=== PATIENT | female | born 1955 | race Caucasian/White ===

== ENCOUNTER → 2020-08-20 13:40 | Outpatient (BNVA) | payer OTHER, SELFPAY | PROVIDERS: PCP Internal Medicine; Referring Provider Internal Medicine; Visit Provider Orthopaedic Surgery | DX: M17.0 Bilateral primary osteoarthritis of knee (principal) | CPT/HCPCS: 20610; 99202; J1100 ==

== ENCOUNTER → 2021-07-01 14:38 | Outpatient (BNVA) | payer MEDICARE, MEDICAID, OTHER, SELFPAY | PROVIDERS: PCP Internal Medicine; Visit Provider Surgery Vascular Surgery | DX: I83.12 Varicose veins of left lower extremity with inflammation (principal); M17.0 Bilateral primary osteoarthritis of knee | CPT/HCPCS: 99202 ==

== ENCOUNTER 2021-07-20 08:13 | Outpatient (REF) | payer MEDICARE, SELFPAY ==
--- NOTE | ~2021-07-20 | US_ITS ---
EXAMINATION: BILATERAL LOWER EXTREMITY VENOUS ULTRASOUND (Reflux Exam) CLINICAL INDICATION: This is a 66-year-old female with venous insufficiency and varicose veins. COMPARISON: None. TECHNIQUE: Color flow triplex imaging and compression Doppler was performed to evaluate both the deep and the superficial systems bilaterally. To evaluate the superficial system, the examination was performed in the upright position. Color-flow Doppler ultrasound and compression ultrasound were utilized. In addition, maneuvers were utilized to demonstrate reflux. FINDINGS: 1. DEEP VENOUS ULTRASOUND OF THE RIGHT LOWER EXTREMITY: Common Femoral Vein: Compressible, normal respiratory variation and augmented flow. Femoral vein: Compressible, normal color flow and augmentation. Popliteal Vein: Compressible, normal augmentation. Deep Reflux: There is no evidence of reflux in the deep system in either the common femoral vein or the popliteal vein. . There is no evidence of a Page's cyst. 2. SUPERFICIAL ULTRASOUND WITH DOPPLER OF RIGHT LOWER EXTREMITY GREAT SAPHENOUS VEIN: Saphenofemoral junction: 0.6 cm. The reflux time is 3128 ms. Mid thigh: 0.3 cm. The reflux time is 3220 ms. Above knee: 0.4 cm. The reflux time is 3204 ms. Below knee: 0.3 cm. The reflux time is 3176 ms. Mid calf: 0.2 cm. There is no reflux. Ankle: 0.3 cm. There is no reflux to GSV REFLUX: There is reflux at the saphenofemoral junction and extending down below the knee. DUPLICATED GREAT SAPHENOUS VEIN: None SMALL SAPHENOUS VEIN: Upper: 0.4 cm Lower: 0.2 cm SSV REFLUX: No evidence of reflux. VEIN OF GIACOMINI: None Imaged. PERFORATORS: There is a 0.4 cm proximal calf back shoe cutter with reflux of 3244 ms. VARICOSITIES: There are 0.9 cm varicose veins in the upper thigh with the reflux time of 3280 ms. There is 0.3 cm varicose veins in the mid thigh with reflux time of 2848 ms. There is a 0.4 cm distal thigh varicose vein with the reflux time of 2976 ms. 3. DEEP VENOUS ULTRASOUND OF THE LEFT LOWER EXTREMITY: Common Femoral Vein: Compressible, normal respiratory variation and augmented flow. Femoral vein: Compressible, normal color flow and augmentation. Popliteal Vein: Compressible, normal augmentation. Deep Reflux: There is no evidence of reflux in the deep system in either the common femoral vein or the popliteal vein. There is a fluid collection seen in the left popliteal fossa. This may represent a popliteal cyst. 4. SUPERFICIAL ULTRASOUND WITH DOPPLER OF LEFT LOWER EXTREMITY GREAT SAPHENOUS VEIN: Saphenofemoral junction: 0.5 cm. There is no reflux at the junction. Mid thigh: 0.2 cm. The reflux time is 3144 ms. Above knee: 0.2 cm. The reflux time is 1052 ms. Below knee: 0.2 cm. The reflux time is 3040 ms. Mid calf: 0.2 cm. There is no reflux. Ankle: 0.2 cm. There is no reflux. GSV REFLUX: There is no reflux at the saphenofemoral junction. However, there is reflux in the mid thigh extending down below the knee. DUPLICATED GREAT SAPHENOUS VEIN: None SMALL SAPHENOUS VEIN: Upper: 0.3 cm Lower: 0.2 cm SSV REFLUX: No evidence of reflux. VEIN OF GIACOMINI: None Imaged. PERFORATORS: There is a 0.2 cm mid thigh back shoe cutter with greater than 3 seconds of reflux. VARICOSITIES: There is a 0.3 cm proximal thigh varicose vein with greater than 3 seconds of reflux. There is a 0.5 cm mid thigh varicose vein with greater than 3 seconds of reflux. There is a 0.4 cm proximal calf varicose veins with 2892 ms of reflux. There is a 0.3 cm anterior mid calf varicose vein with greater than 3 seconds of reflux. US/US venous duplex LE BI IMPRESSION: 1. There is a patent right great saphenous vein with reflux at the saphenofemoral junction of greater than 3 seconds. 2. There is a patent right small saphenous vein without evidence of reflux. 3. There are varicose veins in the right thigh with greater than 3 seconds of reflux. 4. There is a patent left great saphenous vein without reflux seen at the junction. However, reflux is seen from the proximal thigh down to below the knee. 5. There is a patent left small saphenous vein without evidence of reflux. 6. There are varicose veins in the left thigh and calf with reflux. 7. There is a left popliteal fossa cyst.
== END 2021-07-20 08:14 | disposition home or self-care (01) ==
LOC: HO.US 08:13
PROVIDERS: PCP Internal Medicine; Visit Provider Surgery Vascular Surgery
DX: I83.12 Varicose veins of left lower extremity with inflammation (principal)
CPT/HCPCS: 93970

== ENCOUNTER → 2021-07-27 10:10 | Outpatient (BNVA) | payer MEDICARE, SELFPAY | PROVIDERS: PCP Internal Medicine; Visit Provider Surgery Vascular Surgery | DX: I83.11 Varicose veins of right lower extremity with inflammation (principal) | CPT/HCPCS: 99212 ==

== ENCOUNTER → 2021-10-22 08:57 | Outpatient (BNVA) | payer MEDICARE, SELFPAY | PROVIDERS: PCP Internal Medicine; Visit Provider Surgery Vascular Surgery | DX: I83.11 Varicose veins of right lower extremity with inflammation (principal) | CPT/HCPCS: 36475 ==

== ENCOUNTER 2021-10-25 14:44 | Outpatient (REF) | payer MEDICARE, SELFPAY ==
--- NOTE | ~2021-10-25 | US_ITS ---
EXAMINATION: US VENOUS ULTRASOUND WITH DOPPLER LOWER EXTREMITY, RIGHT CLINICAL INFORMATION: This is a 66-year-old female with pain in the right leg. The patient is status post radiofrequency ablation in the right great saphenous vein on . COMPARISON: None TECHNIQUE: Ultrasound of the deep veins is performed from the hip to the calf with compression sonography and color and pulse Doppler assessment. Spectral analysis with color-flow imaging is performed. FINDINGS: There is normal venous compression and respiratory variation and augmented flow. The visualized common femoral vein, superficial femoral vein, profunda femoral vein, popliteal vein, and the trifurcation region shows no evidence of deep venous thrombosis. There is no significant popliteal fossa cyst. The right great saphenous vein appears close to 0.7 cm from the saphenofemoral junction. There is no extension of thrombus into the deep venous system. US/US venous duplex LE RT IMPRESSION: 1. No DVT demonstrated in the right lower extremity. 2. The right great saphenous vein appears closed beginning 2.7 cm from the saphenofemoral junction. There is no extension into the deep venous system.
== END 2021-10-25 14:45 | disposition home or self-care (01) ==
LOC: HO.US 14:44
PROVIDERS: Visit Provider Surgery Vascular Surgery
DX: M79.604 Pain in right leg (principal)
CPT/HCPCS: 93971

== ENCOUNTER → 2021-11-04 11:08 | Outpatient (BNVA) | payer MEDICARE, SELFPAY | PROVIDERS: PCP Internal Medicine; Visit Provider Surgery Vascular Surgery | DX: I83.12 Varicose veins of left lower extremity with inflammation (principal); Z98.890 Other specified postprocedural states | CPT/HCPCS: 99212 ==

== ENCOUNTER → 2021-12-17 09:32 | Outpatient (BNVA) | payer MEDICARE, SELFPAY | PROVIDERS: PCP Internal Medicine; Visit Provider Surgery Vascular Surgery | DX: I83.12 Varicose veins of left lower extremity with inflammation (principal) | CPT/HCPCS: 36482 ==

== ENCOUNTER 2021-12-20 15:12 | Outpatient (REF) | payer MEDICARE, SELFPAY ==
--- NOTE | ~2021-12-20 | US_ITS ---
EXAMINATION: US VENOUS ULTRASOUND WITH DOPPLER LOWER EXTREMITY, LEFT CLINICAL INFORMATION: Post vena seal 12/17/2021 COMPARISON: Previous exam October 2021 TECHNIQUE: Ultrasound of the deep veins is performed from the hip to the calf with compression sonography and color and pulse Doppler assessment. Spectral analysis with color-flow imaging is performed. FINDINGS: There is normal venous compression and respiratory variation and augmented flow. The visualized common femoral vein, superficial femoral vein, profunda femoral vein, popliteal vein, and the trifurcation region shows no evidence of deep venous thrombosis. The left greater saphenous vein is closed. There is echogenic material in the left greater saphenous vein 1.5 cm from the saphenofemoral junction post vena seal procedure. There is no significant popliteal fossa cyst. US/US venous duplex LE LT IMPRESSION: No DVT demonstrated in the left lower extremity.
== END 2021-12-20 15:13 | disposition home or self-care (01) ==
LOC: HO.US 15:12
PROVIDERS: Visit Provider Surgery Vascular Surgery
DX: M79.605 Pain in left leg (principal)
CPT/HCPCS: 93971

== ENCOUNTER → 2021-12-30 10:08 | Outpatient (BNVA) | payer MEDICARE, SELFPAY | PROVIDERS: PCP Internal Medicine; Visit Provider Surgery Vascular Surgery | DX: I83.12 Varicose veins of left lower extremity with inflammation (principal) | CPT/HCPCS: 99212 ==

== ENCOUNTER 2023-10-06 10:31 | Outpatient (REF) | payer OTHER, SELFPAY ==
[2023-10-06 11:49] LABS: MANUAL DIFF FLAG NO
[2023-10-06 11:58] LABS: Basophils Percent Auto 0.3 % (0-2); Eosinophils Percent Auto 0.3 % (0-4); Hematocrit 37.8 % (37.0-47.0); Hemoglobin 12.3 g/dl (12.0-16.0); Imm Gran Abs Auto 0.01 X10*3/uL (0.00-0.03); Imm Gran Pct Auto 0.3 % (0.0-0.4); Lymphocytes Absolute Auto 1.4 X10*3/uL (1.2-4.9); Lymphocytes Percent Auto 36.7 % (20-40); Mean Corpuscular HGB Conc 32.5 g/dl (31.0-35.0); Mean Corpuscular Hemoglobin 27.3 pg (27.0-33.0); Mean Corpuscular Volume 83.8 fL (80.0-98.0); Mean Platelet Volume 10.8 fL (9.4-12.3); Monocytes Absolute Auto 0.3 X10*3/uL (0.1-1.2); Monocytes Percent Auto 8.3 % (2-11); Neutrophils Absolute Auto 2.1 x10*3/uL (2.0-8.3); Neutrophils Percent Auto 54.1 % (45-73); Platelet Count 379 X10*3/uL (160-400); Red Blood Count 4.51 X10*6/uL (4.20-5.50); Red Cell Distribution Width 13.5 % (11.0-16.0); White Blood Count 3.9 X10*3/uL (4.8-10.8)
[2023-10-06 14:49] LABS: Anion Gap 12 (12-20); Blood Urea Nitrogen 12 mg/dL (9-16); Calcium 9.3 mg/dL (8.4-10.2); Carbon Dioxide 27 mmol/L (22-29); Chloride 104 mmol/L (96-108); Estimated Glomerular Filt Rate > 60; Glucose Random 105 mg/dL (60-115); Potassium 3.4 mmol/L (3.3-5.1); Sodium 140 mmol/L (135-145)
[2023-10-07 04:21] LABS: HIV AB/AG Nonreactive (Nonreactive); HIV Num 1 0.28 S/CO (0.00-0.99); ~Hepatitis C Antibody Nonreactive (Nonreactive)
[2023-10-09 21:24] LABS: TS Negative Control Passed; TS Panel A 0; TS Panel B 0; TS Positive Control Passed; TSpotTB Negative (Negative)
== END 2023-10-06 10:32 | disposition home or self-care (01) ==
LOC: HO.HHCL 10:31
PROVIDERS: Visit Provider Internal Medicine
DX: Z11.4 Encounter for screening for human immunodeficiency virus [HIV] (principal); Z11.1 Encounter for screening for respiratory tuberculosis; R63.4 Abnormal weight loss
CPT/HCPCS: 36415; 80048; 85025; 86481; 86803; 87389

== ENCOUNTER 2023-11-08 10:50 | Outpatient (REF) | payer MEDICARE, SELFPAY ==
--- NOTE | ~2023-11-08 | MM_ITS ---
EXAMINATION: MM SCREENING DIGITAL BREAST TOMOSYNTHESIS, BILATERAL CLINICAL INFORMATION: Screening. Asymptomatic. COMPARISON: Mammography: This study is compared with prior exams dating back to 2013. There are no interval examinations. TECHNIQUE: Digital breast tomosynthesis is performed in both the craniocaudal and mediolateral oblique views along with computer-aided detection (CAD). Synthesized 2D images are generated from the tomosynthesis. FINDINGS: There are scattered areas of fibroglandular density (ACR BI-RADS breast composition Category b). There are no significant masses, abnormal calcifications, or other abnormalities. MM/MM tomosynthesis screening BI IMPRESSION: No mammographic evidence of malignancy. ASSESSMENT: BI-RADS BI-RADS 1 - Negative RECOMMENDATION: Routine annual mammography screening. 1 year F/U This examination should not preclude the clinical evaluation of a suspicious palpable abnormality. This patient's information was entered into a reminder system with a target due date for their next mammogram.
== END 2023-11-08 10:51 | disposition home or self-care (01) ==
LOC: HO.MAMMO 10:50
PROVIDERS: PCP Internal Medicine; Visit Provider Internal Medicine
DX: Z12.31 Encounter for screening mammogram for malignant neoplasm of breast (principal)
CPT/HCPCS: 77063; 77067

== ENCOUNTER → 2023-11-08 11:30 | Outpatient (BNV) | payer MEDICARE, SELFPAY | PROVIDERS: PCP Internal Medicine; Visit Provider Radiology Diagnostic Radiology | DX: Z12.31 Encounter for screening mammogram for malignant neoplasm of breast (principal) | CPT/HCPCS: 77063; 77067 ==

== ENCOUNTER 2025-03-07 10:45 | Outpatient (REF) | payer OTHER, SELFPAY ==
--- NOTE | ~2025-03-07 | MM_ITS ---
EXAMINATION: MM SCREENING DIGITAL BREAST TOMOSYNTHESIS, BILATERAL CLINICAL INFORMATION: Screening. Asymptomatic. COMPARISON: Mammography: Comparison is made with available priors TECHNIQUE: Digital breast mammography with tomosynthesis is performed in both the craniocaudal and mediolateral oblique views along with computer-aided detection (CAD). FINDINGS: The breasts are heterogeneously dense, which may obscure small masses (ACR BI-RADS breast composition Category c). There are no significant masses, abnormal calcifications, or other abnormalities. MM/MM tomosynthesis screening BI IMPRESSION: No mammographic evidence of malignancy. ASSESSMENT: BI-RADS BI-RADS 1 - Negative RECOMMENDATION: Routine annual mammography screening. 1 year F/U This examination should not preclude the clinical evaluation of a suspicious palpable abnormality. This patient's information was entered into a reminder system with a target due date for their next mammogram. Electronically signed by: Pippa Morales DO 03/13/2025 01:34 PM EDT
--- OUTSIDE RECORDS SUMMARY | 2025-03-07 11:12 | XMS_ITS | Encounter Summary ---
Author Organization [employer] Address [address] [place] [address] Care Team Providers Care Occup Ther Name Role Phone Joleen Ledezma MD Primary Care Provide r Encounter Details Date Type Department Care Team (Latest Contact Info) Description 04/16/2019 Abstract [facility] Dental, Provider, DDS Social History Tobacco Use Types Packs/Day Years Used Date Smoking Tobacco: Never Assessed Comments Unknown Sex and Gender Information Value Date Recorded Sex Assigned at Female 07/18/2022 10:28 AM EDT Legal Sex Female 10:28 AM EDT Gender Identity Female 07/18/2022 10:28 AM EDT Sexual Orientation Choose not to disclose 2021 10:28 AM EDT documented as of this encounter Plan of Treatment Upcoming Encounters Date Type Department Care Team (Late st Contact Info) Description 04/03/2025 11:00 AM EDT Office Visit [facility] [address] [place] [address] Joleen Ledezma MD [address] [place] [address] documented as of this encounter Visit Diagnoses Not on filedocumented in this encounter Care Teams Occup Ther Relationship Specialty Start Date End Date Joleen Ledezma MD [address] [place] [address] PCP - General Family Medicine 11/22/18 documented as of this encounter
== END 2025-03-07 10:46 | disposition home or self-care (01) ==
LOC: HO.MAMMO 10:45
PROVIDERS: PCP Internal Medicine; Visit Provider Internal Medicine
DX: Z12.31 Encounter for screening mammogram for malignant neoplasm of breast (principal)
CPT/HCPCS: 77063; 77067

== ENCOUNTER → 2025-03-07 11:15 | Outpatient (BNV) | payer OTHER, SELFPAY | PROVIDERS: PCP Internal Medicine; Visit Provider Internal Medicine | DX: Z12.31 Encounter for screening mammogram for malignant neoplasm of breast (principal) | CPT/HCPCS: 77063; 77067 ==

== ENCOUNTER 2025-04-07 08:59 | Outpatient (REF) | payer OTHER, SELFPAY ==
--- OUTSIDE RECORDS SUMMARY | 2025-04-07 09:14 | XMS_ITS | Encounter Summary ---
Author Organization [employer] Address [address] [place] [address] Care Team Providers Care Paid Search Marketing Analyst Name Role Phone Joleen Ledezma MD Primary Care Provide r Encounter Details Date Type Department Care Team (Latest Contact Info) Description 04/16/2019 Abstract [facility] Dental, Provider, DDS Social History [...] as of this encounter Plan of Treatment Not on file documented as of this encounter Visit Diagnoses Not on filedocumented in this encounter Care Teams Paid Search Marketing Analyst Relationship Specialty Start Date End Date Joleen Ledezma MD [address] [place] [id number] PCP - General Family Medicine 11/22/18 documented as of this encounter
--- OUTSIDE RECORDS SUMMARY | 2025-04-07 09:14 | XMS_ITS | Clinical Summary ---
Author Organization [facility] Address [address] [place] [address] Phone Care Team Providers Care Hospital Insurance Clerk Name Role Phone Jose Mcdonnell MD Primary Care Provider [phone] Allergies No known active allergies Medications methocarbamoL (ROBAXIN) 500 mg tablet Take 1 tablet (500 mg total) by mouth 2 (two) times a day for 10 days. 20 tablet 12/10/2024 Active oxyCODONE (ROXICODONE) 5 mg immediate release tablet Take 1 tablet (5 mg total) by mouth every 6 (six) hours if needed for severe pain. Max Daily Amount: 20 mg 8 tablet 02/14/2025 Active Active Problems No known active problems Encounters Date Type Department Care Team Description 02/14/2025 7:40 AM EDT - 02/14/2025 9:03 AM EDT Emergency [facility] Emergency [address] [place] [address] Dental abscess (Primary Dx) Discharge Disposition: Home or Self Care from Last 3 Months Social History Tobacco Use Types Packs/Day Years Used Date Smoking Tobacco: Never Assessed Comments Unknown Sex and Gender Information Value Date Recorded Sex Assigned at Female 12/10/2024 8:15 AM EDT Legal Sex Female 9:03 AM EST Gender Identity Female 12/10/2024 8:15 AM EDT Sexual Orientation Straight 12/10/2024 8: 15 AM EDT Obstetrics History Last Filed Vital Signs Vital Sign Reading Time Taken Comments Blood Pressure 169/84 02/14/2025 7:39 AM EDT Pulse 89 02/14/2025 7:39 AM EDT Temperature 36.7 C (98.1 F) 02/14/2025 7:39 AM EDT Respiratory Rate 16 02/14/2025 7:39 AM EDT Oxygen Saturation 98% 02/14/2025 7:39 AM EDT Inhaled Oxygen Concentration - - Weight 65.8 kg (145 lb) 02/14/2025 7:39 AM EDT Height 160 cm (5' 3 ) 02/14/2025 7:39 AM EDT Body Mass Index 25.69 02/14/2025 7:39 AM EDT Plan of Treatment Health Maintenance Due Date Last Done Comments Breast Cancer Screening 1955 Zoster Vaccines (1 of 2) 2006 DTaP,Tdap,and Td Vaccines (2 - Td or Tdap) 06/18/2023 06/18/2013 Colorectal Cancer Screening: Colonoscopy 10/17/2023 Falls Risk Assessment 10/17/2023 Medicare Annual Wellness Visit 10/17/2023 Osteoporosis Screening (Bone Density Screening) 10/17/2023 Social Influencers of Health Screening 10/17/2023 COVID-19 Vaccine ( season) 2024 09/16/2021, 12/16/2020, 11/25/2020 Depression Screening 09/18/2024 Hypertension/CHF/CAD Annual BMP Blood Test 12/10/2024 Influenza Vaccine (#1) 2025 , 07/30/2020, 11/22/2018, Additional history exists Cholesterol Screening (Lipid Panel) 04/06/2026 04/06/2021 RSV Immunization Adult Patients (1 - 1-dose 75+ series) 2031 Hepatitis C Screening Completed 10/06/2023 Pneumococcal Vaccine: 50+ Years Completed 10/06/2023 HIB Vaccines Aged Out No longer eligi ble based on patient's age to complete this topic HPV Vaccines Aged Out No longer eligi ble based on patient's age to complete this topic Hepatitis A Vaccines Aged Out No long er eligible based on patient's age to complete this topic Hepatitis B Vaccines Aged Out No long er eligible based on patient's age to complete this topic IPV Vaccines Aged Out No longer eligi ble based on patient's age to complete this topic MMR Vaccines Aged Out No longer eligi ble based on patient's age to complete this topic Meningococcal ACWY Vaccine Aged Out N o longer eligible based on patient's age to complete this topic Meningococcal B Vaccine Aged Out No l onger eligible based on patient's age to complete this topic RSV Immunization Patients Under 20 months Aged Out No longer eligible based on patient's age to complete this topic Varicella Vaccines Aged Out No longer eligible based on patient's age to complete this topic Insurance [employer] MEDICARE MEDICAID - [place] Care Teams Hospital Insurance Clerk Relationship Specialty Start Date End Date Jose Mcdonnell MD [address] [place] [address] [phone] PCP - General Internal Medicine 08/23/17
[2025-04-07 11:16] LABS: MANUAL DIFF FLAG NO
[2025-04-07 11:28] LABS: Hematocrit 38.4 % (37.0-47.0); Hemoglobin 12.3 g/dl (12.0-16.0); Imm Gran Abs Auto 0.02 X10*3/uL (0.00-0.03); Imm Gran Pct Auto 0.4 % (0.0-0.4); Lymphocytes Absolute Auto 2.2 X10*3/uL (1.2-4.9); Mean Corpuscular HGB Conc 32.0 g/dl (31.0-35.0); Mean Corpuscular Hemoglobin 26.9 pg (27.0-33.0); Mean Corpuscular Volume 83.8 fL (80.0-98.0); NRBC Abs Auto 0.000 X10*3/uL (0.0-0.012); NRBC Pct Auto 0.0 /100WBC (0.0-0.2); Platelet Count 367 X10*3/uL (160-400); Red Blood Count 4.58 X10*6/uL (4.20-5.50); White Blood Count 4.9 X10*3/uL (4.8-10.8)
[2025-04-07 11:55] LABS: Alanine Aminotransferase 15 U/L (0-31); Albumin Level 4.6 g/dL (3.5-5.0); Alkaline Phosphatase 113 U/L (39-117); Anion Gap 10 (12-20); Aspartate Amino Transferase 19 U/L (5-31); Blood Urea Nitrogen 17 mg/dL (9-16); Calcium 9.6 mg/dL (8.4-10.2); Carbon Dioxide 27 mmol/L (22-29); Chloride 106 mmol/L (96-108); Cholesterol 286 mg/dL (<200); Estimated Glomerular Filt Rate > 60; HDL Cholesterol 38 mg/dL (>40); Potassium 4.3 mmol/L (3.3-5.1); Sodium 139 mmol/L (135-145); Total Protein 8.0 g/dL (6.5-8.0); Triglycerides 297 mg/dL (<150)
[2025-04-07 12:01] LABS: HIV Num 1 0.05 S/CO (0.00-0.99); ~HepC Num1 0.09 S/CO (0.00-0.79); ~Hepatitis C Antibody Nonreactive (Nonreactive)
== END 2025-04-07 09:00 | disposition home or self-care (01) ==
LOC: HO.HHCL 08:59
PROVIDERS: PCP Internal Medicine; Visit Provider Internal Medicine
DX: Z11.4 Encounter for screening for human immunodeficiency virus [HIV] (principal); Z11.59 Encounter for screening for other viral diseases; I10 Essential (primary) hypertension; R73.03 Prediabetes
CPT/HCPCS: 36415; 80053; 80061; 82306; 84443; 85025; 86803; 87389